=== PATIENT | male | born 1980 | race Caucasian/White ===

== ENCOUNTER 2024-01-18 17:35 | Emergency (ER) | payer SELFPAY ==
[2024-01-18] VITALS (22 sets, daily range): BP systolic 112–153; BP diastolic 78–118; PULSE 108–152; RESP 15–34; TEMP 37–37.9; O2SAT 87–96; BMI 21.9
--- NOTE | 2024-01-18 17:53 | XRR_ITS ---
PROCEDURE INFORMATION: Exam: XR Chest Exam date and time: 01/18/2024 5:57 PM Age: 43 years old Clinical indication: Shortness of breath; Additional info: SOB TECHNIQUE: Imaging protocol: Radiologic exam of the chest. Views: 1 view. COMPARISON: No relevant prior studies available. FINDINGS: Lungs: There is a large area of dense consolidation involving the lingula of the left lung as well as the left lower lobe. There are 2 separate vague areas of nodularity involving the lateral aspect of the right upper lung field. Pleural spaces: There is suggestion of a left pleural effusion. Heart/Mediastinum: Unremarkable. No cardiomegaly. Bones/joints: Unremarkable. XR/XR chest 1V portable [id number] IMPRESSION: 1. Extensive left lung consolidation with pleural effusion 2. Vague right lung nodules. Please correlate with CT chest scan.
--- NOTE | 2024-01-18 18:00 | CTR_ITS ---
PROCEDURE INFORMATION: Exam: CTA Chest With Contrast Exam date and time: 01/18/2024 6:46 PM Age: 43 years old Clinical indication: Shortness of breath; Additional info: SOB TECHNIQUE: Imaging protocol: Computed tomographic angiography of the chest with contrast. Exam focused on the arteries. 3D rendering (Not supervised by radiologist): MIP and/or 3D reconstructed images were created by the technologist. Radiation optimization: All CT scans at this facility use at least one of these dose optimization techniques: automated exposure control; mA and/or kV adjustment per patient size (includes targeted exams where dose is matched to clinical indication); or iterative reconstruction. Contrast material: OMNI 350; Contrast volume: 60 ml; Contrast route: INTRAVENOUS (IV); COMPARISON: CR (CHEST, ) 01/18/2024 5:57 PM RADIATION DOSE METRICS: Total DLP (mGy-cm): 435 FINDINGS: Pulmonary arteries: Multiple tiny pulmonary emboli also involve the right lower lobe. Aorta: Unremarkable. No aortic aneurysm. No aortic dissection. Lungs: There is a 1 cm cavitary lesion involving the lateral aspect of the right lung apex. A rounded pleural-based nodule is noted in the lateral aspect of the right mid lung field. There is a large area of dense consolidation involving the left upper lobe along with areas of cavitation and masslike consolidation. There is infiltrating soft tissue mass effect throughout the left hilum. The mass effect causes narrowing of multiple bronchi as well as narrowing of multiple pulmonary artery branches. In addition, there is thrombosis involving multiple left upper lobe pulmonary artery branches including thrombosis of the dominant lingular branch. There is extensive atelectasis involving the left lower lobe. Pleural spaces: A large left-sided pleural effusion is noted. Heart: Unremarkable. No cardiomegaly. No pericardial effusion. Heart RV/LV ratio: The RV/LV ratio is 0.7. Lymph nodes: Mildly prominent lymph nodes are noted in the left upper mediastinum with evidence of partial calcification. The largest node measures 1.6 cm in diameter. Bones/joints: Unremarkable. No acute fracture. Soft tissues: See Lungs finding. CT/CT angio chest PE protcl [id number] IMPRESSION: 1. Infiltrating tumor involving the left hilum causing bronchial narrowing and pulmonary artery narrowing. Pulmonary emboli are noted bilaterally. 2. Extensive left upper lobe consolidation felt to be a combination of pulmonary infarct and possibly tumor 3. Enlarged mediastinal lymph nodes of uncertain etiology 4. Right lung nodules suspicious for metastatic lesions 5. Large left pleural effusion
--- NOTE | 2024-01-18 18:09 | ED_ITS ---
Documented by User: Mireille Paul MD 01/18/24 22:38 HPI - SOB/Dyspnea 2 General: Chief Complaint: Shortness of Breath/Dyspnea Stated Complaint: Painfully side Time Seen by Provider: 01/18/24 17:42 Source: patient Mode of arrival: ambulatory Limitations: no limitations History of Present Illness: HPI Narrative: 43-year-old male states that over the la st few days he has had increasing productive cough he states had some hemoptysis as well states he been having severe dyspnea but having some palpitations he states has had some hemoptysis as well. Does have a history of smoking denies any known medical issues in the past. Associated symptoms: Reports chest pain; Deny abdominal pain, fever(s), nausea or vomiting Related Data Allergies Allergy/AdvReac Type Severity Reaction Status Date / Time No Known Allergies Allergy Verified 01/18/24 17:54 Review of Systems 2 Const: Denies: fever(s), chills, body aches or change in appetite ENMT: Denies: throat pain or dental pain Card: Reports: chest pain Resp: Reports: dyspnea and productive cough GI: Denies: abdominal pain, nausea, vomiting or diarrhea Musc: Denies: neck pain or back pain Skin/Breast: Denies: rash Neuro: Denies: headache(s) Physical Exam 2 Const: COMMON NORMALS: patient oriented x3 HENMT: COMMON NORMALS: normocephalic and atraumatic HEAD & SCALP: n ormocephalic and atraumatic Eye: COMMON NORMALS: conjunctivae normal CONJUNCTIVA: Yes conjunctivae normal Neck/C-Spine: COMMON NORMALS: full ROM and supple Chest: COMMONS NORMALS: normal inspection of the chest Resp: COMMON NORMALS: No retractions EFFORT & INSPECTION: Yes respiratory distress AUSCULTATION: diminished lung sounds Cardio: COMMON NORMALS: No murmurs present (Cardio) RATE: tachycardic Extremity: COMMON NORMALS: normal to inspection and full ROM Neuro: COMMON NORMALS: patient oriented x3, moves all extremities and no focal motor deficits Psych: COMMON NORMALS: mental status grossly normal, Normal thought process present and cooperative THOUGHT PROCESS: Normal thought process present Skin: COMMON NORMALS: no rashes or lesions noted and no wounds GENERAL SKIN EXAM: no rashes or lesions noted Course 2 Reevaluation(s): Reevaluation #1: Talk to [facility] to attempt transfer patient there for higher level of care pulmonology will CT surgery. That spoke to her intensive insulin with her CT surgeon and recommended higher level of care spoke to [facility] along with [facility] in [place] who had no beds I did speak to [facility] and have patient on wait list there. Time: 22:37 Vital Signs: Vital signs: Vital Signs Temperature 98.6 F 01/18/24 20:30 Pulse Rate 118 H 01/18/24 23:45 Respiratory Rate 25 H 01/18/24 23:45 Blood Pressure 131/85 01/18/24 23:45 Pulse Oximetry 94 01/18/24 23:45 Oxygen Delivery Me thod Nasal Cannula 01/18/24 23:30 Oxygen Flow Rate 3 01/18/24 23:30 MDM - SOB/Dyspnea Medical Records I reviewed the patient's medical records. Lab Data I reviewed the patient's lab results. 01/18/24 18:11 01/18/24 18:11 Labs/Radiology: Radiology Impressions Chest X-Ray 01/18/24 17:53 IMPRESSION: 1. Extensive left lung consolidation with pleural effusion 2. Vague right lung nodules. Please correlate with CT chest scan. Chest CTA 01/18/24 18:00 IMPRESSION: 1. Infiltrating tumor involving the left hilum causing bronchial narrowing and pulmonary artery narrowing. Pulmonary emboli are noted bilaterally. 2. Extensive left upper lobe consolidation felt to be a combination of pulmonary infarct and possibly tumor 3. Enlarged mediastinal lymph nodes of uncertain etiology 4. Right lung nodules suspicious for metastatic lesions 5. Large left pleural effusion ADDENDUM: 01/18/24 1950 COMMENT: THIS REPORT CONTAINS FINDINGS THAT MAY BE CRITICAL TO PATIENT CARE. As of 7:48 PM CDT on 01/18/2024. Modesta Hutchins confirmed that MIREILLE PAUL has received the exam report, is aware of the critical finding, and indicated no conference call was necessary to discuss the exam findings. Laboratory Results WBC 18.04 10^3/uL (3.29-11.43) H 01/18/24 18:11 RBC 4.83 10^6/uL (3.85-5.65) 01/18/24 18:11 Hgb 15.40 g/dL (11.27-16.99) 01/18/24 18:11 Hct 45.8 % (37-53) 01/18/24 18:11 MCV 94.8 fl (82-101) 01/18/24 18:11 MCH 31.9 pg (27-33) 01/18/24 18:11 MCHC 33.6 g/dL (30-55) 01/18/24 18:11 RDW 14.7 % (12.1-15.1) 01/18/24 18:11 Plt Count 193 10^3/cmm (157-399) 01/18/24 18:11 MPV 8.7 fL (7.4-10.4) 01/18/24 18:11 Neut % (Auto) 83.1 % 01/18/24 18:11 Lymph % (Auto) 9.4 % 01/18/24 18:11 [place] % (Auto) 6.8 % 01/18/24 18:11 Eos % (Auto) 0.0 % 01/18/24 18:11 Baso % (Auto) 0.2 % 01/18/24 18:11 Neut # (Auto) 14.99 10^3/uL (1.8-7.7) H 01/18/24 18:11 Lymph # (Auto) 1.7 10^3/uL (0.8-4.8) 01/18/24 18:11 [place] # (Auto) 1.2 10^3/uL (0.2-0.9) H 01/18/24 18:11 Eos # (Auto) 0.0 10^3/uL (0.0-0.8) 01/18/24 18:11 Baso # (Auto) 0.0 10^3/uL (0.0-0.1) 01/18/24 18:11 Nucleated RBC % (auto) 0 % 01/18/24 18:11 Nucleated RBCs # 0.0 /100WBC 01/18/24 18:11 PT 14.00 SECONDS (12.1-14.9) 01/18/24 18:11 INR 1.04 (0.8-1.2) 01/18/24 18:11 D-Dimer 4.42 ug/mLFEU (0-0.59) H 01/18/24 18:11 Sodium 127 mmol/L (136-145) L 01/18/24 18:11 Potassium 4.4 mmol/L (3.5-5.1) 01/18/24 18:11 Chloride 94 mmol/L (98-107) L 01/18/24 18:11 Carbon Dioxide 24 mmol/L (22-29) 01/18/24 18:11 Anion Gap 13.4 (5-19) 01/18/24 18:11 BUN 13 mg/dL (6-20) 01/18/24 18:11 Creatinine 0.8 mg/dL (0.7-1.2) 01/18/24 18:11 GFR Calculation 106.5 mL/min (90-130) 01/18/24 18:11 Glucose 144 mg/dL (65-115) H 01/18/24 18:11 Calculated Osmolality 267 mOsm/kg (285-295) L 01/18/24 18:11 Lactic Acid 2.5 mmol/L (0.5-2.2) H 01/18/24 18:11 Lactic Acid (Sepsis) 1.0 mmol/L (0.5-2.2) 01/18/24 21:11 Calcium 8.7 mg/dL (8.5-10.5) 01/18/24 18:11 Total Bilirubin 1.4 mg/dL (0.15-1.2) H 01/18/24 18:11 AST 16 U/L (0-40) 01/18/24 18:11 ALT 10 U/L (0-41) 01/18/24 18:11 Alkaline Phosphatase 98 U/L (40-130) 01/18/24 18:11 Troponin T Baseline < 6 ng/L (0-15) 01/18/24 18:11 Troponin T 120 Minute 6.00 ng/L (0-15) 01/18/24 20:18 Delta Troponin T 0.38501 ABS# (0-10) 01/18/24 20:18 Troponin T Hi Sens 6Hr 9.39 ng/L (0-15) 01/18/24 23:54 Troponin T Hi Sens 6Hr Delta 3.35371 ng/L (0-12) 01/18/24 23:54 NT-Pro-B Natriuret Pep 629 pg/mL (0-125) H 01/18/24 18:11 Total Protein 7.4 g/dL (6.6-8.7) 01/18/24 18:11 Albumin 3.8 g/dL (3.5-5.2) 01/18/24 18:11 Globulin 3.6 g/dL (1.3-4.6) 01/18/24 18:11 All radiology interpretation(s) finalized by discharge EKG Data EKG 1: I personally reviewed and interpreted this EKG as follows: EKG Interpretation Date: 01/18/24 EKG interpretation time: 18:28 Interpretation: atrial flutter hr [address] elevation qrs 83 qtc 335 EKG 2: I personally reviewed and interpreted this EKG as follows: EKG Interpretation Date: 01/18/24 EKG interpretation time: 19:53 Interpretation: sinus tach hr [address] elevation qrs 86 qtc 388 Discharge Plan Discharge Patient Disposition: Xfer Short-Term Hosp Clinical Impression: Pulmonary embolism, Lung mass, Metastatic disease, Pneumonia Condition: Stable Coding Level of Care Code ED Crosstie Inspector for Chg Fwd Documented by User: Siri Salinas MD 01/19/24 00:28 HPI - SOB/Dyspnea 2 General: Chief Complaint: Shortness of Breath/Dyspnea Stated Complaint: Painfully side Time Seen by Provider: 01/18/24 17:42 Related Data Allergies Allergy/AdvReac Type Severity Reaction Status Date / Time No Known Allergies Allergy Verified 01/18/24 17:54 Course 2 Vital Signs: Vital signs: Vital Signs Temperature 98.6 F 01/18/24 20:30 Pulse Rate 118 H 01/18/24 23:45 Respiratory Rate 25 H 01/18/24 23:45 Blood Pressure 131/85 01/18/24 23:45 Pulse Oximetry 94 01/18/24 23:45 Oxygen Delivery Dc thod Nasal Cannula 01/18/24 23:30 Oxygen Flow Rate 3 01/18/24 23:30 MDM - SOB/Dyspnea Medical Decision Making Patient care transitioned to sc at shift change. Patient has lung mass, possible mets, pulmonary emboli. Concern for invasion around the pulmonary artery. Patient was declined at [facility] in [place] secondary to they felt it was too complicated. [facility] had no beds. At the time of shift change awaiting callback from [facility] in [place]. I talked with hospital doctor at [facility]. Patient has been accepted and has been listed as high-priority , however they do not have any beds currently. Consultation: I spoke with Dr. Henning who is on-call for the hospitalist service. She will consult on the patient and make recommendations for management while we are waiting on a bed. Assessment and plan: Pulmonary mass Possible metastatic disease Pulmonary emboli Mild hemoptysis -Patient accepted to [facility] in [place]. ?Patient has received Lovenox, Zosyn and vancomycin. Has required some diltiazem for tachycardia. Pain medications given. Fluids given. - Discussed findings and plan with patient. Answered any questions. - All laboratory values were reviewed and interpreted personally by myself, the ER physician - All imaging was reviewed and interpreted personally by myself, the ER physician. - Evaluation and treatment of this problem were appropriate in the emergency setting Lab Data 01/18/24 18:11 01/18/24 18:11 Labs/Radiology: Radiology Impressions Chest X-Ray 01/18/24 17:53 IMPRESSION: 1. Extensive left lung consolidation with pleural effusion 2. Vague right lung nodules. Please correlate with CT chest scan. Chest CTA 01/18/24 18:00 IMPRESSION: 1. Infiltrating tumor involving the left hilum causing bronchial narrowing and pulmonary artery narrowing. Pulmonary emboli are noted bilaterally. 2. Extensive left upper lobe consolidation felt to be a combination of pulmonary infarct and possibly tumor 3. Enlarged mediastinal lymph nodes of uncertain etiology 4. Right lung nodules suspicious for metastatic lesions 5. Large left pleural effusion ADDENDUM: 01/18/24 1950 COMMENT: THIS REPORT CONTAINS FINDINGS THAT MAY BE CRITICAL TO PATIENT CARE. As of 7:48 PM CDT on 01/18/2024. Modesta Hutchins confirmed that MIREILLE PAUL has received the exam report, is aware of the critical finding, and indicated no conference call was necessary to discuss the exam findings. Laboratory Results WBC 18.04 10^3/uL (3.29-11.43) H 01/18/24 18:11 RBC 4.83 10^6/uL (3.85-5.65) 01/18/24 18:11 Hgb 15.40 g/dL (11.27-16.99) 01/18/24 18:11 Hct 45.8 % (37-53) 01/18/24 18:11 MCV 94.8 fl (82-101) 01/18/24 18:11 MCH 31.9 pg (27-33) 01/18/24 18:11 MCHC 33.6 g/dL (30-55) 01/18/24 18:11 RDW 14.7 % (12.1-15.1) 01/18/24 18:11 Plt Count 193 10^3/cmm (157-399) 01/18/24 18:11 MPV 8.7 fL (7.4-10.4) 01/18/24 18:11 Neut % (Auto) 83.1 % 01/18/24 18:11 Lymph % (Auto) 9.4 % 01/18/24 18:11 [place] % (Auto) 6.8 % 01/18/24 18:11 Eos % (Auto) 0.0 % 01/18/24 18:11 Baso % (Auto) 0.2 % 01/18/24 18:11 Neut # (Auto) 14.99 10^3/uL (1.8-7.7) H 01/18/24 18:11 Lymph # (Auto) 1.7 10^3/uL (0.8-4.8) 01/18/24 18:11 [place] # (Auto) 1.2 10^3/uL (0.2-0.9) H 01/18/24 18:11 Eos # (Auto) 0.0 10^3/uL (0.0-0.8) 01/18/24 18:11 Baso # (Auto) 0.0 10^3/uL (0.0-0.1) 01/18/24 18:11 Nucleated RBC % (auto) 0 % 01/18/24 18:11 Nucleated RBCs # 0.0 /100WBC 01/18/24 18:11 PT 14.00 SECONDS (12.1-14.9) 01/18/24 18:11 INR 1.04 (0.8-1.2) 01/18/24 18:11 D-Dimer 4.42 ug/mLFEU (0-0.59) H 01/18/24 18:11 Sodium 127 mmol/L (136-145) L 01/18/24 18:11 Potassium 4.4 mmol/L (3.5-5.1) 01/18/24 18:11 Chloride 94 mmol/L (98-107) L 01/18/24 18:11 Carbon Dioxide 24 mmol/L (22-29) 01/18/24 18:11 Anion Gap 13.4 (5-19) 01/18/24 18:11 BUN 13 mg/dL (6-20) 01/18/24 18:11 Creatinine 0.8 mg/dL (0.7-1.2) 01/18/24 18:11 GFR Calculation 106.5 mL/min (90-130) 01/18/24 18:11 Glucose 144 mg/dL (65-115) H 01/18/24 18:11 Calculated Osmolality 267 mOsm/kg (285-295) L 01/18/24 18:11 Lactic Acid 2.5 mmol/L (0.5-2.2) H 01/18/24 18:11 Lactic Acid (Sepsis) 1.0 mmol/L (0.5-2.2) 01/18/24 21:11 Calcium 8.7 mg/dL (8.5-10.5) 01/18/24 18:11 Total Bilirubin 1.4 mg/dL (0.15-1.2) H 01/18/24 18:11 AST 16 U/L (0-40) 01/18/24 18:11 ALT 10 U/L (0-41) 01/18/24 18:11 Alkaline Phosphatase 98 U/L (40-130) 01/18/24 18:11 Troponin T Baseline < 6 ng/L (0-15) 01/18/24 18:11 Troponin T 120 Minute 6.00 ng/L (0-15) 01/18/24 20:18 Delta Troponin T 0.26597 ABS# (0-10) 01/18/24 20:18 Troponin T Hi Sens 6Hr 9.39 ng/L (0-15) 01/18/24 23:54 Troponin T Hi Sens 6Hr Delta 3.71179 ng/L (0-12) 01/18/24 23:54 NT-Pro-B Natriuret Pep 629 pg/mL (0-125) H 01/18/24 18:11 Total Protein 7.4 g/dL (6.6-8.7) 01/18/24 18:11 Albumin 3.8 g/dL (3.5-5.2) 01/18/24 18:11 Globulin 3.6 g/dL (1.3-4.6) 01/18/24 18:11 Discharge Plan Discharge Patient Disposition: Xfer Short-Term Hosp Clinical Impression: Pulmonary embolism, Lung mass, Metastatic disease, Pneumonia Condition: Stable Coding Level of Care Code ED Crosstie Inspector for Mike Leach
[2024-01-18 18:19] LABS: Basophils % 0.2 %; Hematocrit 45.8 % (37-53); Lymphocytes # 1.7 10^3/uL (0.8-4.8); Lymphocytes % 9.4 %; Mean Corpuscular HGB Conc 33.6 g/dL (30-55); Mean Corpuscular Hemoglobin 31.9 pg (27-33); Mean Corpuscular Volume 94.8 fl (82-101); Mean Platelet Volume 8.7 fL (7.4-10.4); Monocytes # 1.2 10^3/uL (0.2-0.9); Monocytes % 6.8 %; Neutrophils # 14.99 10^3/uL (1.8-7.7); Neutrophils % 83.1 %; Nucleated Red Blood Cells % 0 %; Platelet Count 193 10^3/cmm (157-399); Red Blood Count 4.83 10^6/uL (3.85-5.65); Red Cell Distribution Width 14.7 % (12.1-15.1); White Blood Count 18.04 10^3/uL (3.29-11.43)
[2024-01-18] MEDS: morphine 4 mg/mL SDV 1 mL IVP (18:25)
[2024-01-18] MEDS: acetaminophen 500 mg Tablet 1000 MG PO (18:25)
[2024-01-18] MEDS: ondansetron 2 mg/ML SDV 2 mL 4 MG IVP (18:25)
--- NOTE | 2024-01-18 18:28 | ECG_ITS ---
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 Measurements Intervals [place] Rate: 146 P: 0 MS: 0 QRS: 9 QRSD: 83 T: 146 QT: 251 QTc: 391 Interpretive Statements Possible sinusTACHYCARDIA ST DEVIATION AND MODERATE T-WAVE ABNORMALITY, CONSIDER LATERAL ISCHEMIA [-0.1+ mV T-WAVE IN I/aVL/V5/V6] No previous ECG available for comparison Electronically Signed On 01-20-2024 01:03:22 CDT by Teodora Marin M.D. [id number]
[2024-01-18 18:31] LABS: INR 1.04 (0.8-1.2)
[2024-01-18 18:39] LABS: Troponin(5th) Baseline < 6 ng/L (0-15)
[2024-01-18 18:40] LABS: D Dimer 4.42 ug/mLFEU (0-0.59); Lactic Sepsis W/Reflex 2.5 mmol/L (0.5-2.2)
[2024-01-18] MEDS: dilTIAZem 5 mg/mL SDV 5 mL 20 MG IVP (18:42)
[2024-01-18 18:54] LABS: Alanine Aminotransferase 10 U/L (0-41); Albumin Level 3.8 g/dL (3.5-5.2); Alkaline Phosphatase 98 U/L (40-130); Anion Gap 13.4 (5-19); Aspartate Amino Transferase 16 U/L (0-40); Blood Urea Nitrogen 13 mg/dL (6-20); Calcium 8.7 mg/dL (8.5-10.5); Carbon Dioxide 24 mmol/L (22-29); Chloride 94 mmol/L (98-107); Creatinine Clr Calc Pharmacy 145.6448; Globulin 3.6 g/dL (1.3-4.6); Glomerular Filtration Rate 106.5 mL/min (90-130); Glucose 144 mg/dL (65-115); NT Pro B Type Natriuretic Pept 629 pg/mL (0-125); Osmolality Calculated 267 mOsm/kg (285-295); Potassium 4.4 mmol/L (3.5-5.1); Sodium 127 mmol/L (136-145); Total Bilirubin 1.4 mg/dL (0.15-1.2); Total Protein 7.4 g/dL (6.6-8.7)
[2024-01-18] MEDS: iohexol 350 mg/mL 500 mL Btl (per mL) IV (18:58)
[2024-01-18] MEDS: sodium chloride 0.9% 1,000 ML 999 ML IV ×2 (19:12→19:48)
[2024-01-18] MEDS: piperacillin-tazobactam 3.375 GM in sodium chloride 0.9% (plus) 50 ML IV (19:13)
[2024-01-18] MEDS: vancomycin 1,000 MG in sodium chloride 0.9% 250 ML 250 MG IV (19:22)
[2024-01-18] MEDS: sodium chloride 0.9% 500 ML 999 ML IV (19:23)
[2024-01-18] MEDS: enoxaparin 80 mg/0.8 mL Syringe SUBCUT (19:43)
--- NOTE | 2024-01-18 19:53 | ECG_ITS ---
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 Measurements Intervals [place] Rate: 113 P: 57 NC: 132 QRS: 19 QRSD: 86 T: 69 QT: 321 QTc: 442 Interpretive Statements SINUS TACHYCARDIA ABNORMAL RHYTHM ECG Non Specific T wave; changes Compared to ECG 01/18/2024 18:28:22 Atrial flutter no longer present T-wave abnormality no longer present Possible ischemia no longer present Electronically Signed On 01-20-2024 16:53:44 CDT by Teodora Marin M.D. [email or web address]
[2024-01-18 20:12] LABS: Reflex Lactate Order REFLEX LACTIC ORDERD
[2024-01-18] MEDS: HYDROmorphone 1 mg/mL INJ 1 mL 0.5 MG IVP (20:31)
[2024-01-18 20:52] LABS: Troponin 5 2HR Delta 0.00001 ABS# (0-10)
--- NOTE | 2024-01-18 23:53 | ECG_ITS ---
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 Measurements Intervals [place] Rate: 119 P: 0 VT: 0 QRS: 16 QRSD: 88 T: 79 QT: 306 QTc: 431 Interpretive Statements ATRIAL FIBRILLATION WITH RAPID VENTRICULAR RESPONSE ABNORMAL RHYTHM ECG Compared to ECG 01/18/2024 19:53:13 Sinus tachycardia no longer present Electronically Signed On 01-21-2024 01:08:14 CDT by Teodora Marin M.D. [id number]
[2024-01-19] VITALS (71 sets, daily range): BP systolic 112–147; BP diastolic 54–111; PULSE 100–142; RESP 18–42; O2SAT 89–98
[2024-01-19 00:16] LABS: Troponin 5 6HR 9.39 ng/L (0-15); Troponin 5 6HR Delta 3.39001 ng/L (0-12)
[2024-01-19] MEDS: ondansetron 2 mg/ML SDV 2 mL 4 MG IVP (00:28)
[2024-01-19] MEDS: morphine 4 mg/mL SDV 1 mL IVP (00:29)
[2024-01-19] MEDS: piperacillin-tazobactam 3.375 GM in sodium chloride 0.9% (plus) 50 ML IV ×3 (01:44→17:33)
--- NOTE | 2024-01-19 03:43 | P.CONIM_ITS ---
Providers/Reason For Consult 2 Consulting Physician/Specialty*: Deedee Henning MD / Hospitalist Reason for Consult*: PE, lung mass Requesting Physician: Siri Salinas MD History of Present Illness History of Present Illness Cj Perales is a 43 year old male who is presenting to the emergency room [facility] with complaints of being acutely unwell for the past 2 days. His is at bedside relating some of his history. She states that patient has been feeling poorly for about 3 weeks now. She noticed that his left leg was swollen and streaky about 3 weeks ago. He has had a cough during the same timeframe. Several of his kids were sick with respiratory illnesses and he assumed that he would have an acute viral illness. However 2 days ago his cough got much worse. Along with that he developed left-sided rib pain which is not relieved by goou-lds-alemcsc medications. 2 nights ago he started having hemoptysis. His estimates he coughed up several bright red-colored clots which has continued intermittently over the course of past 2 days. He has a new oxygen requirement of 3 L/min today. He was saturating 87% on room air. CTA of his chest has revealed infiltrating tumor involving the left hilum causing bronchial narrowing and pulmonary artery narrowing. There are bilateral pulmonary emboli noted. Details of CTA as noted below. Tmax of 100.2 Fahrenheit since arrival at the emergency room. Currently complaining of chest pain and palpitations. Patient is a chronic smoker. No family history of lung malignancy. Review of Systems 2 General: Reports: 10 or more systems reviewed and unremarkable except in HPI and below Const: Denies: fever(s), chills or body aches Eyes: Denies: change in vision, blurry vision or photophobia ENMT: Reports: hoarseness; Denies: throat pain, enlarged tonsils, odynophagia or nasal congestion Card: Denies: chest pain, palpitations, irregular heart rhythm, edema, swelling of feet/ankles, lightheadedness, pre-syncope, dyspnea on exertion or orthopnea Resp: Denies: dyspnea, productive cough, non-productive cough, wheezing, stridor, pain on inspiration, change in phlegm color, hemoptysis or chest congestion GI: Denies: abdominal pain, nausea, vomiting, hematemesis, coffee ground emesis, dysphagia, heartburn, diarrhea, constipation, GI cramping, change in stool character, hematochezia or melena : Denies: flank pain, dysuria, urinary frequency, urinary urgency, urinary hesitancy or hematuria Musc: Denies: neck pain, back pain, extremity pain, joint swelling, joint warmth or deformity Neuro: Denies: headache(s), numbness in extremities, weakness in extremities, sensory changes, difficulty walking, frequent falls, dizziness, vertigo, behavioral changes, Slurred speech present or seizure-like activity Psych: Denies: anxiety, depression, suicidal ideation or homicidal ideation Endo: Denies: polyuria, polydipsia, tired all the time, cold intolerance or hot flashes Conrad/Lymph: Denies: easy bruising or easy bleeding Medications/Allergies Allergies Allergy/AdvReac Type Severity Reaction Status Date / Time No Known Allergies Allergy Verified 01/18/24 17:54 Vitals/I&O/Wt Last Vital Signs Temp 98.6 F 01/18/24 20:30 Pulse 124 H 01/19/24 03:15 Resp 26 H 01/19/24 02:15 BP 130/88 01/19/24 03:15 Pulse Ox 91 01/19/24 03:15 O2 Del Method Nasal Cannula 01/19/24 03:15 O2 Flow Rate 3 01/19/24 00:45 01/18/24 01/18/24 01/19/24 14:59 22:59 06:59 Intake Total 1399.4 / 1399.4 1000 / 2399.4 Balance 1399.4 / 1399.4 1000 / 2399.4 Weight last 48 hrs Weight 81.647 kg Physical Exam 2 Narrative: General: AAO x 3, ill-appearing male, tachypneic, respiratory rate between 26- 30, unable to complete sentences due to being short of breath. HEENT: PERRLA, pupils bilaterally equal and reactive, pallors not present Chest: Coarse breath sounds left lung diffusely CVS: Tachycardia with heart rate between 120 to 130 bpm Abdomen: Soft, nontender, no organomegaly, bowel sounds present Neuro: No focal deficits, no facial deformity, AO x3, power 5/5 in all limbs Data 01/18/24 18:11 01/18/24 18:11 Other data: Launch?Image [id number] [place] [address] CT Scan Report Signed with Lacy Patient: Cj Perales Unit #: [id number] : 1980 Age/Sex: 43 / M ADM Date: 01/18/24 Loc: ER Room/Bed: Attending Dr: Ordering Provider/Ordering MD: Mireille Paul MD Date of Service: 01/18/24 Procedure(s): CT angio chest PE protcl [id number] Accession Number(s): [id number] Report Number: [id number]/CT angio chest PE protcl [id number] COMMENT: THIS REPORT CONTAINS FINDINGS THAT MAY BE CRITICAL TO PATIENT CARE. As of 7:48 PM CDT on 01/18/2024. Modesta Hutchins confirmed that MIREILLE PAUL has received the exam report, is aware of the critical finding, and indicated no conference call was necessary to discuss the exam findings. Addendum Dictated By: Collin Watts MD Addendum Signed By: Collin Watts MD Signed Date/Time: 01/18/24 1950 Addendum Cosigned By: PROCEDURE INFORMATION: Exam: CTA Chest With Contrast Exam date and time: 01/18/2024 6:46 PM Age: 43 years old Clinical indication: Shortness of breath; Additional info: SOB TECHNIQUE: Imaging protocol: Computed tomographic angiography of the chest with contrast. Exam focused on the arteries. 3D rendering (Not supervised by radiologist): MIP and/or 3D reconstructed images were created by the technologist. Radiation optimization: All CT scans at this facility use at least one of these dose optimization techniques: automated exposure control; mA and/or kV adjustment per patient size (includes targeted exams where dose is matched to clinical indication); or iterative reconstruction. Contrast material: OMNI 350; Contrast volume: 60 ml; Contrast route: INTRAVENOUS (IV); COMPARISON: CR (CHEST, ) 01/18/2024 5:57 PM RADIATION DOSE METRICS: Total DLP (mGy-cm): 435 FINDINGS: Pulmonary arteries: Multiple tiny pulmonary emboli also involve the right lower lobe. Aorta: Unremarkable. No aortic aneurysm. No aortic dissection. Lungs: There is a 1 cm cavitary lesion involving the lateral aspect of the right lung apex. A rounded pleural-based nodule is noted in the lateral aspect of the right mid lung field. There is a large area of dense consolidation involving the left upper lobe along with areas of cavitation and masslike consolidation. There is infiltrating soft tissue mass effect throughout the left hilum. The mass effect causes narrowing of multiple bronchi as well as narrowing of multiple pulmonary artery branches. In addition, there is thrombosis involving multiple left upper lobe pulmonary artery branches including thrombosis of the dominant lingular branch. There is extensive atelectasis involving the left lower lobe. Pleural spaces: A large left-sided pleural effusion is noted. Heart: Unremarkable. No cardiomegaly. No pericardial effusion. Heart RV/LV ratio: The RV/LV ratio is 0.7. Lymph nodes: Mildly prominent lymph nodes are noted in the left upper mediastinum with evidence of partial calcification. The largest node measures 1.6 cm in diameter. Bones/joints: Unremarkable. No acute fracture. Soft tissues: See Lungs finding. CT/CT angio chest PE protcl [id number] IMPRESSION: 1. Infiltrating tumor involving the left hilum causing bronchial narrowing and pulmonary artery narrowing. Pulmonary emboli are noted bilaterally. 2. Extensive left upper lobe consolidation felt to be a combination of pulmonary infarct and possibly tumor 3. Enlarged mediastinal lymph nodes of uncertain etiology 4. Right lung nodules suspicious for metastatic lesions 5. Large left pleural effusion A&P Assessment and plan (1) Lung mass: 43-year-old male presenting with cough, dyspnea, hypoxic respiratory failure, hemoptysis as above. CT of the chest showing large area of dense consolidation involving the left upper lobe along with areas of cavitation and masslike consolidation. Infiltrating soft tissue mass effect throughout the left hilum. Mass is causing narrowing of multiple bronchi as well as narrowing of multiple pulmonary artery branches. Thrombosis noted involving multiple left upper lobe pulmonary artery branches including thrombosis of the dominant lingula branch. Large left-sided pleural effusion noted. Prominent lymph nodes in the left upper mediastinum with evidence of partial calcification, largest measuring 1.6 cm Given above findings and clinical picture, concern for this mass being malignant in nature. Patient is a chronic smoker No past family history of lung malignancy (2) Pulmonary embolism: Pulmonary embolism as noted above seen on CTA Thus far he has received Lovenox 80 mg (1 mg/kg) subcutaneously Will start subsequent anticoagulation with heparin gtt, weight-based protocol Would prefer heparin drip over Lovenox at this time given hemoptysis, anticipated need for bronchoscopy should hemoptysis worsen, likely need diagnostic evaluation such as needle biopsy, possible thoracentesis once transferred to a higher center. Check lower extremity Doppler to assess for additional DVT. Echocardiogram to assess for right heart strain (3) Pneumonia: Likely postobstructive pneumonia Empiric antibiotic coverage with piperacillin/tazobactam and IV vancomycin. Sputum culture and Gram stain MRSA nasal screen Urine bacterial and Legionella antigens. Supplemental O2 to keep saturation greater than 92% (4) Hypoxic respiratory failure: Multifactorial related to pulmonary embolism, lung mass, pneumonia (5) Atrial flutter: Initial EKG upon arrival to the emergency room showing atrial flutter with heart rate of 146 bpm. He received 20 mg of IV push Cardizem. Thereafter subsequent EKG showing sinus tachycardia with heart rate between 110 to 120 bpm. continuous telemetry monitoring Start po Metoprolol 25mg po BID Trop series 6--> 6--> 9, no significant delta at 2 or 6 hours. Check echocardiogram to assess for right heart strain. Plan Patient presenting to the hospital with hemoptysis, currently also diagnosed with a lung mass and PE with compressive effect on pulmonary arteries. Highly concerned that with initiation of anticoagulation, there is potential for worsening hemoptysis. Discussed the high risk of anticoagulation with patient and his family at bedside. Unfortunately, We do not have ability to perform any bronchoscopic interventions should such an event occur due to lack of pulmonology services at [facility]. Patient will additionally need further diagnostics such as biopsy of the lung mass which we are unable to perform here. Agree with ER assessment that it would be in the patient's best interest to transfer to a higher center as we do not have pulmonology or cardiothoracic surgery services available at [facility]. Hospitalist team will follow while patient awaits transfer from ER. Coding Level of Care Code Acute Code for Chg Fwd High MDM includes number and complexity of problems actively addressed during encounter, amount and/or complexity of data reviewed/ordered and described risk of complication, morbidity or mortality of management as documented Diagnoses Lung mass R91.8 Pulmonary embolism I26.99 Pneumonia J18.9 Hypoxic respiratory failure J96.91 Atrial flutter I48.92
[2024-01-19] MEDS: metoprolol tartrate 1 mg/1 mL SDV 5 mL 5 MG IVP (04:10)
[2024-01-19] MEDS: heparin drip 25,000 UNIT/500 ML PREMIX 22.86 UNIT IV (04:24)
--- NOTE | 2024-01-19 04:25 | USR_ITS ---
PROCEDURE INFORMATION: Exam: US Duplex Lower Extremity Veins, Bilateral Exam date and time: 01/19/2024 4:26 PM Age: 43 years old Clinical indication: Swelling (edema) of limb; Lower extremity, bilateral; Additional info: Dvt TECHNIQUE: Imaging protocol: Real-time duplex ultrasound of the bilateral extremities with 2-D barragan scale, color Doppler flow and spectral waveform analysis including responses to compression and other maneuvers (when performed) with image documentation. Complete exam focused on the lower extremity veins. COMPARISON: No relevant prior studies available. FINDINGS: Right deep veins: Nonocclusive hypoechoic thrombus with decreased compressibility in the right common femoral vein, portions of the right femoral vein, the right popliteal vein, and right peroneal vein. Occlusive deep venous thrombosis with decreased compressibility in the right profunda femoral vein and areas of the right femoral vein. The right posterior tibial vein is patent with normal compressibility. Left deep veins: Nonocclusive hypoechoic thrombus with decreased compressibility in the left peroneal vein. Superficial veins: The right greater saphenous vein and left greater saphenous vein in the left thigh are patent with normal compressibility. Hypoechoic thrombus with decreased compressibility in the left greater saphenous vein in the left calf. Soft tissues: Unremarkable as visualized. US/[place] [id number] IMPRESSION: 1. Nonocclusive acute deep venous thrombosis in the right common femoral vein, portions of the right femoral vein, the right popliteal vein, and right peroneal vein. Occlusive acute deep venous thrombosis in the right profunda femoral vein and areas of the right femoral vein. 2. Nonocclusive acute deep venous thrombosis in the left peroneal vein. 3. Superficial thrombosis in the left greater saphenous vein in the left calf.
--- NOTE | 2024-01-19 05:07 | ECG_ITS ---
[facility] Test Date: 2024-01-19 Pat Name: Cj Perales Department: Room: Gender: Male [employer]: : 1980 Requested By: Rosie Munroe Order Number: [id number] Enzo MD: Teodora Marin M.D. Measurements Intervals [place] Rate: 117 P: 55 NE: 121 QRS: 17 QRSD: 100 T: 72 QT: 291 QTc: 407 Interpretive Statements SINUS TACHYCARDIA ABNORMAL RHYTHM ECG Compared to ECG 01/19/2024 00:15:22 Atrial fibrillation no longer present Electronically Signed On 01-21-2024 01:08:21 CDT by Teodora Marin M.D. [email or web address]
--- NOTE | 2024-01-19 05:08 | PC.NURSE ---
PT HEPARIN DRIP STARTED. STATED NOT TO GIVE BOLUS DUE TO PT RECIEVING LOVENOX SHOT. VERBAL ORDER GIVEN AT BEDSIDE.
[2024-01-19] MEDS: morphine 4 mg/mL SDV 1 mL 2 MG IVP (05:12)
[2024-01-19] MEDS: vancomycin 1,250 MG/250 ML PIGGYBACK 166.67 MG IV ×2 (05:48→14:55)
[2024-01-19 06:46] LABS: MRSA PCR OZH (swab) NOT DETECTED (Negative)
--- NOTE | 2024-01-19 06:53 | PC.NURSE ---
MD VERBAL ORDERED 2.5 MG IVP TO SEE IF PT STAYS BELOW 140. MD IN ROOM WHEN PUSHED, MD OKAY. TO GIVE 2.5MG IN NEXT 10 MINUTES IF PT GOES ABOVE 140BPM.
[2024-01-19] MEDS: metoprolol tartrate 25 mg Tablet 12.5 MG PO (09:19)
[2024-01-19] MEDS: oxyCODONE-APAP 5-325 mg Tablet 1 TAB PO ×2 (09:20→15:07)
[2024-01-19 10:35] LABS: Partial Thromboplastin Time 100.8 SECONDS (23.9-36.7)
[2024-01-19] MEDS: nicotine 14 mg Patch 1 PATCH TRANSDERMA (13:33)
[2024-01-19 18:00] LABS: Partial Thromboplastin Time 64.2 SECONDS (23.9-36.7)
== END 2024-01-19 17:43 | disposition short-term general hospital (02) ==
PROVIDERS: Student in an Organized Health Care Education/Training Program; Emergency Provider Emergency Medicine
DX: I26.99 Other pulmonary embolism without acute cor pulmonale (principal); J18.9 Pneumonia, unspecified organism; R91.8 Other nonspecific abnormal finding of lung field; R00.0 Tachycardia, unspecified; C78.02 Secondary malignant neoplasm of left lung
CPT/HCPCS: 36415; 71045; 71275; 80053; 83605; 83880; 84484; 85025; 85378; 85610; 85730; 86403; 87070; 87205; 87449; 93005; 93970; 96365; 96366; 96367; 96372; 96375; 96376; 99285; J1170; J1644; J1650; J2270; J2405; J2543; J3370; J3490; J7030; J7040; J7050

== ENCOUNTER 2024-07-06 11:50 | Outpatient (CLI) | payer OTHER, SELFPAY ==
[2024-07-06 12:16] VITALS: PULSE 116; RESP 18; O2SAT 96
[2024-07-06] MEDS: albuterol 2.5 mg/3 mL Neb INHALATION (12:16)
== END 2024-07-06 11:51 | disposition home or self-care (01) ==
LOC: RT 11:52
PROVIDERS: Visit Provider Emergency Medicine
DX: R06.02 Shortness of breath (principal)
CPT/HCPCS: 94060; 94618; J7613